=== PATIENT | male | born 1980 | race Native Hawaiian/Other Pacific Islander ===

== ENCOUNTER 2018-05-09 10:30 | Emergency (ER) | payer OTHER ==
[~2018-05-09] VITALS: Ht 147.3 cm; Wt 68.0 kg
[2018-05-09 12:23] VITALS: BP 131/78; TEMP 97.5
== END 2018-05-09 13:10 | disposition home or self-care (01) ==
LOC: ED 10:34
DX: S43.401A Unspecified sprain of right shoulder joint, initial encounter (principal); S40.011A Contusion of right shoulder, initial encounter; W50.0XXA Accidental hit or strike by another person, initial encounter
CPT/HCPCS: 96372; 99282; J1885

== ENCOUNTER 2020-05-20 11:42 | Outpatient (CLI) | payer OTHER ==
[2020-05-20 12:04] LABS: PLATELET COUNT 414 K/uL (142-355)
== END 2020-05-20 22:13 | disposition home or self-care (01) ==
LOC: LABW 11:42
PROVIDERS: ATTEND Family Medicine
DX: R19.7 Diarrhea, unspecified (principal)
CPT/HCPCS: 36415; 80053; 83630; 85007; 85027; 87015; 87045; 87324; 87328; 87329; 87449; 87899

== ENCOUNTER 2020-09-01 19:50 | Inpatient (IN) | payer OTHER ==
[2020-09-10 10:25] LABS: PLATELET COUNT 360 K/uL (142-355)
[2020-09-10 11:20] LABS: POTASSIUM 3.8 mmol/L (3.6-5.2)
[2020-09-10 11:22] LABS: PLATELET COUNT 271 K/uL (142-355)
[2020-09-10 14:23] LABS: POTASSIUM 4.1 mmol/L (3.6-5.2)
[2020-09-10 14:39] LABS: PLATELET COUNT 174 K/uL (142-355)
== END 2020-09-03 16:40 | disposition home or self-care (01) | DRG 392 ==
LOC: ED 19:50 → MED/SURG 23:15
PROVIDERS: ADMIT Hospitalist; ATTEND Internal Medicine
DX: K58.9 Irritable bowel syndrome, unspecified (principal); E86.0 Dehydration; R55 Syncope and collapse; R19.7 Diarrhea, unspecified; M25.511 Pain in right shoulder; I10 Essential (primary) hypertension; R11.2 Nausea with vomiting, unspecified
CPT/HCPCS: 36415; 80053; 80074; 82150; 82272; 83605; 83630; 83690; 83735; 84100; 85027; 87015; 87040; 87045; 87324; 87328; 87329; 87449; 87635; 87899; 94760; 96360; 96365; 96366; 96375; 99284; J1650; J1956; J2270; J3490; Q9963; U0003

== ENCOUNTER 2021-12-29 11:28 | Outpatient (CLI) | payer OTHER | END 2021-12-29 18:59 | disposition home or self-care (01) | LOC: RAD 11:28 | PROVIDERS: ATTEND Nurse Practitioner Family | DX: R05.1 Acute cough (principal) ==

== ENCOUNTER 2022-06-19 08:08 | Outpatient (CLI) | payer OTHER | END 2022-06-19 19:11 | disposition home or self-care (01) | LOC: NM 08:08 | PROVIDERS: ATTEND Nurse Practitioner Family | DX: I10 Essential (primary) hypertension (principal); Z79.899 Other long term (current) drug therapy | CPT/HCPCS: A9500 ==